=== PATIENT | male | born 1980 | race African-American/Black ===

== ENCOUNTER → 2016-06-08 | Outpatient (CLI) | payer OTHER | LOC: BHSO 13:57 | DX: F42.2 Mixed obsessional thoughts and acts (principal) ==

== ENCOUNTER → 2016-09-11 | Outpatient (CLI) | payer BC | LOC: BHSO 10:13 | DX: F20.9 Schizophrenia, unspecified (principal) ==

== ENCOUNTER → 2017-01-25 | Outpatient (CLI) | payer BC | LOC: BHSO 11:05 | DX: F43.9 Reaction to severe stress, unspecified (principal) ==

== ENCOUNTER → 2017-05-09 | Outpatient (CLI) | payer BC | LOC: BHSO 13:14 | DX: F31.73 Bipolar disorder, in partial remission, most recent episode manic (principal) | CPT/HCPCS: G0463 ==